=== PATIENT | male | born 1950 | race Caucasian/White ===

== ENCOUNTER 2016-10-04 01:39 | Emergency (ER) | payer OTHER ==
[~2016-10-04] VITALS: Ht 172.7 cm; Wt 75.8 kg
[~2016-10-04 01:39] MED LIST: AMLODIPINE BESY10 MG PO; BACTRIM DS TAB1 EACH PO; DILAUDID4 MG PO; IBUPROFEN600 MG PO; IBUPROFEN800 MG PO; LEVAQUIN750 MG PO; PROAIR HFA8.5 GM INH
[2016-10-05] MEDS ORDERED: SYMBICORT 16010.2 GM INH (12:23)
[2016-10-05] MEDS ORDERED: ASPIR-LOW81 MG PO (12:24)
[2016-10-05] MEDS ORDERED: HYDROCHLOROTH12.5 M1 PO (12:24)
[2016-10-05] MEDS ORDERED: BP MED (12:25)
== END 2016-10-04 03:15 | disposition home or self-care (01) ==
LOC: ED 01:39
DX: K52.9 Noninfective gastroenteritis and colitis, unspecified (principal); I25.2 Old myocardial infarction; F17.200 Nicotine dependence, unspecified, uncomplicated; Z88.5 Allergy status to narcotic agent; Z79.899 Other long term (current) drug therapy; Z79.891 Long term (current) use of opiate analgesic
CPT/HCPCS: 80053; 85025; 96361; 96374; 96375; 99283; J1170; J2405; J7030

== ENCOUNTER 2016-10-05 12:13 | Emergency (ER) | payer OTHER ==
[~2016-10-05] VITALS: Ht 172.7 cm; Wt 75.8 kg
[2016-10-05] MEDS ORDERED: SYMBICORT 16010.2 GM INH (12:23)
[2016-10-05] MEDS ORDERED: HYDROCHLOROTH12.5 M1 PO (12:24)
[2016-10-05] MEDS ORDERED: ASPIR-LOW81 MG PO (12:24)
[2016-10-05] MEDS ORDERED: BP MED (12:25)
== END 2016-10-05 16:34 | disposition home or self-care (01) ==
LOC: ED 12:13
DX: G89.18 Other acute postprocedural pain (principal); R07.89 Other chest pain; I25.2 Old myocardial infarction; I71.2 Thoracic aortic aneurysm, without rupture; F17.200 Nicotine dependence, unspecified, uncomplicated; Z98.890 Other specified postprocedural states; Z88.5 Allergy status to narcotic agent; Z79.82 Long term (current) use of aspirin; Z79.899 Other long term (current) drug therapy
CPT/HCPCS: 71020; 99283